=== PATIENT | male | born 1985 | race Caucasian/White ===

== ENCOUNTER 2018-11-18 00:13 | Emergency (ER) | payer OTHER ==
--- NOTE | 2018-11-18 00:15 | ER Report ---
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 Patient reports that he was attempting to drink from a broken bottle and subsequently got a piece of glass stuck in his throat. Patient reports esophageal irritation in the posterior oropharynx specifically in the right side. Patient denies chest pain, shortness breath, fevers or chills. REVIEW OF SYSTEMS: Constitutional: No fever, no chills. Eyes: No discharge. ENT: Esophageal foreign body sensation Cardiovascular: No chest pain, no palpitations. Respiratory: No cough, no shortness of breath. Gastrointestinal: No abdominal pain, no vomiting. Genitourinary: No hematuria. Musculoskeletal: No back pain. Skin: No rashes. Neurological: No headache. Allergies: Coded Allergies: No Known Drug Allergies (Unverified , 11/18/18) Constitutional Vital Sign - Last 24 Hours 11/18/18 00:17 Temp 98.1 Pulse 77 Resp 16 B/P (MAP) 144/104 Pulse Ox 94 O2 Delivery Room Air Physical Exam General Appearance: The patient is alert, has no immediate need for airway protection and no signs of toxicity. No acute distress Eyes: Pupils equal and round no pallor or injection. ENT, Mouth: Mucous membranes are moist. No foreign body visualized on examination of the posterior oropharynx Respiratory: There are no retractions, lungs are clear to auscultation. Cardiovascular: Regular rate and rhythm. Gastrointestinal: Abdomen is soft and non tender, no masses, bowel sounds normal. Neurological: No focal neurological deficits Skin: Warm and dry, no rashes. Musculoskeletal: Neck is supple non tender. Extremities are nontender, nonswollen and have full range of motion. DIFFERENTIAL DIAGNOSIS: After history and physical exam differential diagnosis was considered for esophageal foreign body, irritations of the soft tissue, laceration, foreign body sensation Medical Decision Making EKG/Imaging Imaging PATIENT NAME: Harish Thompson : 1985 MR: [id number] V: [id number] EXAM DATE: ORDERING PHYSICIAN: MATHEW BRYANT [place]CHN[place] [facility] [place]: [place] : 1985 Visit/Account:[id number] Date of Sevruthie: 11/18/2018 CT SOFT TISSUE NECK W/O HISTORY: Drank from a broken glass bottle and believes he swallowed glass. Evaluate for foreign body. COMPARISON: None. TECHNIQUE: Axial images were obtained from the hard palate through the upper chest. Sagittal and coronal reformatted images were also obtained. One of the following dose optimization techniques was utilized in the performanc e of this exam: Automated exposure control; adjustment of the mA and/or kV according to the patient's size; or use of an iterative reconstruction technique. Specific details can be referenced in the facility's radiology CT exam operational policy. CONTRAST: None. FINDINGS: VISUALIZED ORBITS AND BRAIN: Normal. VISUALIZED PARANASAL SINUSES AND MASTOIDS: There is mild mucosal thickening of the bilateral maxillary sinuses. There is a small mucous retention pseudocyst in the right maxillary sinus. Leftward nasal septal deviation. Mastoids are clear. SOFT TISSUES: There are punctate calcifications within the skin of the face. ORAL CAVITY: There is artifact from dental amalgam. Oral cavity is normal. PHARYNX/LARYNX: Normal. Epiglottis is normal. Normal retropharyngeal soft tissues. ESOPHAGUS: Normal. THYROID: Normal. VESSELS: Normal in caliber. No atherosclerosis. 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 LYMPH NODES: No adenopathy. UPPER CHEST: Normal. BONES/VERTEBRA/MUSCULOSKELETAL: There is straightening of the normal cervical lordosis that appears positional. There is mild degenerative change of the spine, greatest at C5-6. Vertebral body heights are maintained. The spinal canal is normal in caliber. Prevertebral soft tissues are within normal limits. IMPRESSION: 1. Unremarkable neck soft tissues. No foreign body. 2. Mild degenerative change of the spine. These findings were discussed by phone with MATHEW BRYANT on 11/18/2018 1:22 AM. 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 There is no foreign body visualized on examination of the posterior oropharynx. CT imaging of the soft tissues completed and no foreign body was identified. Patient likely has soft tissue irritation causing foreign body sensation in the piece of glass likely passed into the stomach. I updated the patient regarding these findings and he voiced understanding. Patient denies chest pain, shortness breath, nausea, vomiting. Return precautions provided. Recommend PCP follow-up Decision to Disposition Date: Nov 18, 2018 Decision to Disposition Time: 01:26 Depart Departure Latest Vital Signs Vital Signs Date Time Temp Pulse Resp B/P (MAP) Pulse Ox O2 Delivery O2 Flow Rate FiO2 11/18/18 00:17 98.1 77 16 144/104 94 Room Air Impression: Primary Impression: Sensation of foreign body in esophagus Condition: Improved Disposition: HOME OR SELF-CARE Patient Instructions: Foreign Body Ingestion (ED) Additional Instructions: No foreign body was identified on CT imaging. Please return promptly if you develop chest pain, trouble breathing, fevers or chills, abdominal pain, blood in the stools. Please follow-up with your family doctor in the next 7 days. MATHEW BRYANT DO Nov 18, 2018 00:15
[2018-11-18 01:00] VITALS: BP 124/88
--- NOTE | 2018-11-18 01:27 | RADIOLOGY IMAGING REPORT ---
FACILITY: [facility] PATIENT NAME: Harish Thompson : 1985 MR: [id number] V: [id number] EXAM DATE: ORDERING PHYSICIAN: MATHEW BRYANT TECHNOLOGIST: Location: [facility] Patient: Harish Thompson : 1985 Visit/Account:[id number] Date of Sevice: 11/18/2018 CT SOFT TISSUE NECK W/O HISTORY: Drank from a broken glass bottle and believes he swallowed glass. Evaluate for foreign body. COMPARISON: None. TECHNIQUE: Axial images were obtained from the hard palate through the upper chest. Sagittal and evon nal reformatted images were also obtained. One of the following dose optimization techniques was utilized in the performance of this exam: Autom ated exposure control; adjustment of the mA and/or kV according to the patient's size; or use of an i terative reconstruction technique. Specific details can be referenced in the facility's radiology CT exam operational policy. CONTRAST: None. FINDINGS: VISUALIZED ORBITS AND BRAIN: Normal. VISUALIZED PARANASAL SINUSES AND MASTOIDS: There is mild mucosal thickening of the bilateral maxillar y sinuses. There is a small mucous retention pseudocyst in the right maxillary sinus. Leftward nasal septal deviation. Mastoids are clear. SOFT TISSUES: There are punctate calcifications within the skin of the face. ORAL CAVITY: There is artifact from dental amalgam. Oral cavity is normal. PHARYNX/LARYNX: Normal. Epiglottis is normal. Normal retropharyngeal soft tissues. ESOPHAGUS: Normal. THYROID: Normal. VESSELS: Normal in caliber. No atherosclerosis. The brachiocephalic artery and left common carotid ar [place]vy have a common origin, a developmental variant. LYMPH NODES: No adenopathy. UPPER CHEST: Normal. BONES/VERTEBRA/MUSCULOSKELETAL: There is straightening of the normal cervical lordosis that appears p ositional. There is mild degenerative change of the spine, greatest at C5-6. Vertebral body heights a re maintained. The spinal canal is normal in caliber. Prevertebral soft tissues are within normal [place] its. IMPRESSION: 1. Unremarkable neck soft tissues. No foreign body. 2. Mild degenerative change of the spine. These findings were discussed by phone with MATHEW BRYANT on 11/18/2018 1:22 AM. Report Dictated By: Alysha Reilly at 11/18/2018 1:14 AM Report E-Signed By: Alysha Reilly at 11/18/2018 1:22 AM WSN:[id number]
== END 2018-11-18 01:32 | disposition home or self-care (01) ==
LOC: ER 00:22
DX: R09.89 Other specified symptoms and signs involving the circulatory and respiratory systems (principal)
CPT/HCPCS: 70490; 99284